=== PATIENT | male | born 1950 | race Caucasian/White ===

== ENCOUNTER 2023-07-14 07:40 | Emergency (ER) | payer MEDICARE ==
[2023-07-14] MEDS ORDERED: Ondansetron 4 MG/2 ML SDV IVPUSH ONE (07:58)
[2023-07-14] MEDS ORDERED: HYDROmorphone 0.5 MG/0.5 ML Syringe IVPUSH ONE ×2 (07:59→11:55)
[2023-07-14] MEDS ORDERED: Sodium Chloride 0.9% 1,000 ML IV SCH (08:00)
[2023-07-14 08:17] LABS: BASOPHILS PERCENT AUTO 0.2 % (0.1-1.3); EOSINOPHILS ABSOLUTE AUTO 0.18 K/uL (0.00-0.40); HEMATOCRIT 41.5 % (38.4-49.7); HEMOGLOBIN 13.7 g/dL (12.9-16.9); IMMATURE GRAN ABSOLUTE AUTO 0.06 K/uL (0.00-0.23); IMMATURE GRAN PERCENT AUTO 0.7 % (0.0-0.7); LYMPHOCYTES ABSOLUTE AUTO 1.01 K/uL (0.8-3.3); LYMPHOCYTES PERCENT AUTO 11.3 % (11.4-47.7); MEAN CORPUSCULAR HEMOGLOBIN 32.5 pg (31.6-35.5); MEAN CORPUSCULAR VOLUME 98.3 fL (81.4-99.0); MONOCYTES ABSOLUTE AUTO 0.49 K/uL (0.20-0.90); MONOCYTES PERCENT AUTO 5.5 % (3.3-12.6); NEUTROPHILS ABSOLUTE AUTO 7.16 K/uL (1.0-7.6); NEUTROPHILS PERCENT AUTO 80.3 % (40.0-78.1); PLATELET COUNT,PLT 261 K/uL (130-375); RED BLOOD CELL COUNT 4.22 M/uL (4.14-5.76); WHITE BLOOD CELL COUNT,WBC 8.9 K/uL (3.2-11.0)
[2023-07-14 08:19] LABS: BASOPHILS ABSOLUTE AUTO 0.02 K/uL (0.00-0.10)
[2023-07-14 08:41] LABS: A/G RATIO 0.7 (1.2-2.2); ALANINE AMINOTRANSFERASE,ALT 31 U/L (12-78); ALBUMIN 2.8 g/dL (3.4-5.0); ALKALINE PHOSPHATASE 107 U/L (46-116); ASPARTATE AMNIOTRANSFERASE,AST 34 U/L (15-37); BILIRUBIN TOTAL 2.1 mg/dL (0.2-1.0); BLOOD UREA NITROGEN,BUN 8 mg/dL (7-18); CALCIUM 8.6 mg/dL (8.5-10.1); CARBON DIOXIDE,CO2 27 mmol/L (21-32); CHLORIDE,CL 99 mmol/L (100-108); CREATININE 1.2 mg/dL (0.8-1.3); ESTIMATED GFR 64 mL/min (>60); GLUCOSE RANDOM 130 mg/dL (74-106); POTASSIUM,K 3.8 mmol/L (3.6-5.2); PROTEIN TOTAL,TP 6.8 g/dL (6.4-8.2); SODIUM,NA 136 mmol/L (140-148)
[2023-07-14 08:42] LABS: ANION GAP 13.8 mmol/L (5.0-14.0)
[2023-07-14 08:44] LABS: LACTIC ACID 1.6 mmol/L (0.4-2.0)
[2023-07-14] MEDS ORDERED: Sodium Chloride 0.9% 80 ML IV SCH (09:00)
[2023-07-14] MEDS ORDERED: Iopamidol 612 MG/ML 100 ML Bottle IV PRN (09:00)
[2023-07-14] MEDS ORDERED: Sodium Chloride 0.9% 10 ML Syringe FLUSH ONE (09:00)
[2023-07-14 09:40] LABS: APPEARANCE,URINE CLEAR (CLEAR); BILIRUBIN,URINE SMALL (NEGATIVE); COLOR,URINE ORANGE (YELLOW); GLUCOSE,URINE NEGATIVE (NEGATIVE); KETONES,URINE NEGATIVE (NEGATIVE); LEUKOCYTE ESTERASE,URINE NEGATIVE (NEGATIVE); NITRITE,URINE NEGATIVE (NEGATIVE); OCCULT BLOOD,URINE TRACE-LYSED (NEGATIVE); PROTEIN,URINE 100 mg/dL (NEGATIVE)
[2023-07-14 10:12] LABS: BACTERIA,URINE NOT SEEN; EPITHELIAL CELLS,URINE NOT SEEN; RBC,URINE NOT SEEN (0-5); WBC,URINE NOT SEEN (0-5)
[2023-07-14] MEDS ORDERED: Piperacillin/Tazobactam 4.5 GM in Sodium Chloride 0.9% 100 ML IV ONE ×2 (11:40→12:00)
[2023-07-14] MEDS ORDERED: Acetaminophen 325 MG Tab PO ONE (11:42)
[2023-07-14] MEDS ORDERED: Piperacillin/Tazobactam/Dext 2.25 GM in Premix Bag 1 BAG IV SCH (12:00)
== END 2023-07-14 13:20 ==
LOC: JP.ED 07:40
DX: R10.11 Right upper quadrant pain (principal); Z90.49 Acquired absence of other specified parts of digestive tract; I10 Essential (primary) hypertension; I48.91 Unspecified atrial fibrillation; Z79.899 Other long term (current) drug therapy; Z79.82 Long term (current) use of aspirin; Z88.8 Allergy status to other drugs, medicaments and biological substances
CPT/HCPCS: 36415; 74177; 74177-26; 80053; 81001; 82150; 83605; 83690; 85025; 87040; 87077; 87186; 96361; 96365; 96375; 96376; 99284; 99285-25; A9270-GY; J1170; J2405; J2543; J3490; J7030; Q9967

== ENCOUNTER 2023-08-31 10:02 | Emergency (ER) | payer MEDICARE | END 2023-08-31 10:57 | disposition home or self-care (01) | LOC: JP.ED 10:02 | DX: L50.9 Urticaria, unspecified (principal); I10 Essential (primary) hypertension; Z79.899 Other long term (current) drug therapy; Z88.6 Allergy status to analgesic agent | CPT/HCPCS: 99282 ==

== ENCOUNTER 2025-08-01 13:23 | Inpatient (IN) | payer MEDICARE ==
[2025-08-01] MEDS ORDERED: Naloxone 0.4 MG/ML SDV IVPUSH PRN (15:04)
[2025-08-01 15:27] LABS: BASOPHILS ABSOLUTE AUTO 0.04 K/uL (0.00-0.10); BASOPHILS PERCENT AUTO 0.4 % (0.1-1.3); EOSINOPHILS ABSOLUTE AUTO 0.33 K/uL (0.00-0.40); EOSINOPHILS PERCENT AUTO 3.5 % (0.0-5.4); IMMATURE GRAN ABSOLUTE AUTO 0.03 K/uL (0.00-0.23); IMMATURE GRAN PERCENT AUTO 0.3 % (0.0-0.7); LYMPHOCYTES ABSOLUTE AUTO 2.12 K/uL (0.8-3.3); LYMPHOCYTES PERCENT AUTO 22.3 % (11.4-47.7); MONOCYTES ABSOLUTE AUTO 0.78 K/uL (0.20-0.90); MONOCYTES PERCENT AUTO 8.2 % (3.3-12.6); NEUTROPHILS ABSOLUTE AUTO 6.22 K/uL (1.0-7.6); NEUTROPHILS PERCENT AUTO 65.3 % (40.0-78.1); PLATELET COUNT,PLT 223 K/uL (130-375); RED BLOOD CELL COUNT 4.20 M/uL (4.14-5.76); WHITE BLOOD CELL COUNT,WBC 9.5 K/uL (3.2-11.0)
[2025-08-01] MEDS: Ondansetron 4 MG/2 ML SDV IVPUSH ONE ×2 (15:39→18:37)
[2025-08-01 15:54] LABS: A/G RATIO 1.0 (1.2-2.2); ALANINE AMINOTRANSFERASE,ALT 27 U/L (12-78); ASPARTATE AMNIOTRANSFERASE,AST 47 U/L (15-37); BILIRUBIN TOTAL 1.8 mg/dL (0.2-1.0); BLOOD UREA NITROGEN,BUN 20 mg/dL (7-18); CARBON DIOXIDE,CO2 30 mmol/L (21-32); CHLORIDE,CL 97 mmol/L (100-108); CREATININE 1.2 mg/dL (0.8-1.3); EST CRCL DRUG DOSING (CG) 55.76 mL/min; ESTIMATED GFR 63 mL/min (>60); GLUCOSE RANDOM 113 mg/dL (74-106); POTASSIUM,K 3.7 mmol/L (3.6-5.2); PRO B-TYPE NATRIUR PEPT,BNPPRO 1660 pg/mL (5-125); PROTEIN TOTAL,TP 7.4 g/dL (6.4-8.2); SODIUM,NA 137 mmol/L (140-148)
[2025-08-01] MEDS: Sodium Chloride 0.9% 10 ML Syringe FLUSH PRN (16:25)
[2025-08-01] MEDS: Iopamidol 612 MG/ML 100 ML Bottle IV PRN (16:25)
[2025-08-01 17:25] LABS: APPEARANCE,URINE CLEAR (CLEAR); GLUCOSE,URINE NEGATIVE (NEGATIVE); OCCULT BLOOD,URINE TRACE-INTACT (NEGATIVE)
[2025-08-01 17:32] LABS: SQUAMOUS EPITHELIAL CELLS,UR RARE /HPF; UROTHELIAL CELLS,URINE NOT SEEN /HPF
[2025-08-01] MEDS: Furosemide 40 MG/4 ML VIAL IVPUSH ONE ×3 (20:50→22:54)
[2025-08-01] MEDS ORDERED: Ondansetron 4 MG Tab.DIS PO PRN (22:01)
[2025-08-01] MEDS ORDERED: Magnesium Hydroxide 400 MG/5 ML Susp 30 ML Cup PO PRN (22:01)
[2025-08-01] MEDS ORDERED: Sennosides/Docusate Sodium 50-8.6 MG Tab PO PRN (22:01)
[2025-08-01] MEDS ORDERED: Sodium Chloride 0.9% 10 ML Syringe FLUSH PRN (22:01)
[2025-08-01] MEDS ORDERED: Nystatin Topical Powder 15 GM Bottle TOP PRN (23:20)
[2025-08-01] MEDS: Morphine 30 MG Tab.ER PO ONE (23:49)
[2025-08-02 02:32] LABS: BASOPHILS ABSOLUTE AUTO 0.03 K/uL (0.00-0.10); BASOPHILS PERCENT AUTO 0.4 % (0.1-1.3); EOSINOPHILS ABSOLUTE AUTO 0.07 K/uL (0.00-0.40); EOSINOPHILS PERCENT AUTO 0.8 % (0.0-5.4); IMMATURE GRAN ABSOLUTE AUTO 0.01 K/uL (0.00-0.23); IMMATURE GRAN PERCENT AUTO 0.1 % (0.0-0.7); LYMPHOCYTES ABSOLUTE AUTO 1.00 K/uL (0.8-3.3); LYMPHOCYTES PERCENT AUTO 11.8 % (11.4-47.7); MONOCYTES ABSOLUTE AUTO 0.83 K/uL (0.20-0.90); MONOCYTES PERCENT AUTO 9.8 % (3.3-12.6); NEUTROPHILS ABSOLUTE AUTO 6.57 K/uL (1.0-7.6); NEUTROPHILS PERCENT AUTO 77.1 % (40.0-78.1); PLATELET COUNT,PLT 215 K/uL (130-375); RED BLOOD CELL COUNT 4.10 M/uL (4.14-5.76); WHITE BLOOD CELL COUNT,WBC 8.5 K/uL (3.2-11.0)
[2025-08-02 02:53] LABS: BLOOD UREA NITROGEN,BUN 24.0 mg/dL (7-18); CARBON DIOXIDE,CO2 27.0 mmol/L (21-32); CHLORIDE,CL 98.0 mmol/L (100-108); CREATININE 1.3 mg/dL (0.8-1.3); EST CRCL DRUG DOSING (CG) 49.85 mL/min; ESTIMATED GFR 58.0 mL/min (>60); GLUCOSE RANDOM 115.0 mg/dL (74-106); POTASSIUM,K 3.5 mmol/L (3.6-5.2); SODIUM,NA 139.0 mmol/L (140-148)
[2025-08-02] MEDS: Magnesium Sulfate 2 GM/50 mL 2 GM in Premix Bag 1 BAG IV ONE (03:12)
[2025-08-02] MEDS: Ondansetron 4 MG/2 ML SDV IV PRN (05:39)
[2025-08-02] MEDS ORDERED: MORPHINE 30 MG PO SCH (09:00)
[2025-08-02] MEDS: Potassium Chloride 20 MEQ Tab.ER PO ONE (09:58)
[2025-08-02] MEDS: Aspirin 325 MG Tab.EC PO SCH (09:59)
[2025-08-02] MEDS: Morphine 30 MG Tab.ER PO SCH (10:00)
[2025-08-02] MEDS: Nystatin Topical Powder 15 GM Bottle TOP PRN (14:14)
[2025-08-03 06:06] LABS: PLATELET COUNT,PLT 191.0 K/uL (130-375); RED BLOOD CELL COUNT 3.6 M/uL (4.14-5.76); WHITE BLOOD CELL COUNT,WBC 4.1 K/uL (3.2-11.0)
[2025-08-03 06:21] LABS: A/G RATIO 0.9 (1.2-2.2); ALANINE AMINOTRANSFERASE,ALT 25 U/L (12-78); ASPARTATE AMNIOTRANSFERASE,AST 47 U/L (15-37); BILIRUBIN TOTAL 1.0 mg/dL (0.2-1.0); BLOOD UREA NITROGEN,BUN 38 mg/dL (7-18); CARBON DIOXIDE,CO2 26 mmol/L (21-32); CHLORIDE,CL 99 mmol/L (100-108); CREATININE 1.6 mg/dL (0.8-1.3); EST CRCL DRUG DOSING (CG) 40.51 mL/min; ESTIMATED GFR 45 mL/min (>60); GLUCOSE RANDOM 116 mg/dL (74-106); POTASSIUM,K 3.5 mmol/L (3.6-5.2); PROTEIN TOTAL,TP 5.9 g/dL (6.4-8.2); SODIUM,NA 137 mmol/L (140-148)
[2025-08-03] MEDS ORDERED: Prochlorperazine 10 MG/2 ML SDV IM PRN (10:27)
[2025-08-03] MEDS ORDERED: Prochlorperazine 10 MG/2 ML SDV IV PRN (10:31)
[2025-08-03] MEDS: Prochlorperazine 10 MG/2 ML SDV IV PRN (10:35)
[2025-08-03] MEDS: Potassium Chloride 20 MEQ Tab.ER PO ONE (11:18)
[2025-08-04 05:59] LABS: PLATELET COUNT,PLT 209.0 K/uL (130-375); RED BLOOD CELL COUNT 3.71 M/uL (4.14-5.76); WHITE BLOOD CELL COUNT,WBC 6.3 K/uL (3.2-11.0)
[2025-08-04 06:14] LABS: BLOOD UREA NITROGEN,BUN 29.0 mg/dL (7-18); CARBON DIOXIDE,CO2 27.0 mmol/L (21-32); CHLORIDE,CL 103.0 mmol/L (100-108); CREATININE 1.0 mg/dL (0.8-1.3); EST CRCL DRUG DOSING (CG) 64.81 mL/min; ESTIMATED GFR 79.0 mL/min (>60); GLUCOSE RANDOM 116.0 mg/dL (74-106); POTASSIUM,K 3.7 mmol/L (3.6-5.2); SODIUM,NA 139.0 mmol/L (140-148)
[2025-08-07 05:48] LABS: PLATELET COUNT,PLT 209.0 K/uL (130-375); RED BLOOD CELL COUNT 3.43 M/uL (4.14-5.76); WHITE BLOOD CELL COUNT,WBC 9.5 K/uL (3.2-11.0)
[2025-08-07 06:05] LABS: BLOOD UREA NITROGEN,BUN 19.0 mg/dL (7-18); CARBON DIOXIDE,CO2 27.0 mmol/L (21-32); CHLORIDE,CL 107.0 mmol/L (100-108); CREATININE 0.9 mg/dL (0.8-1.3); EST CRCL DRUG DOSING (CG) 72.01 mL/min; ESTIMATED GFR 90.0 mL/min (>60); GLUCOSE RANDOM 105.0 mg/dL (74-106); POTASSIUM,K 3.6 mmol/L (3.6-5.2); SODIUM,NA 142.0 mmol/L (140-148)
[2025-08-09] MEDS ORDERED: methylPREDNISolone Acetate 80 MG/ML SDV ONE (08:03)
== END 2025-08-10 10:56 | DRG 552 ==
LOC: JP.ED 13:23 → JP.MS 21:57
PROVIDERS: ADMIT Nurse Practitioner; ATTEND Hospitalist
DX: R60.0 Localized edema (principal); M48.061 Spinal stenosis, lumbar region without neurogenic claudication; M10.9 Gout, unspecified; R53.1 Weakness; I48.91 Unspecified atrial fibrillation; I10 Essential (primary) hypertension; F10.10 Alcohol abuse, uncomplicated; Z88.8 Allergy status to other drugs, medicaments and biological substances; Z79.82 Long term (current) use of aspirin; Z79.899 Other long term (current) drug therapy; Z90.49 Acquired absence of other specified parts of digestive tract; Z98.890 Other specified postprocedural states
CPT/HCPCS: 36415; 71045 ×2; 74177 ×2; 80053; 81001; 83880; 85025; 86140; 96374; 96375; 96376; 99284; 99285; J1938; J2270 ×2; J2405 ×2; Q9967; 72148; 72148-26; 73560-26-LT; 73560-LT; 80048; 82140; 83735; 84484; 84550; 85027; 87493; 93005; 93010; 93306; 97161-GP; 97165-GO; 97530-GP; 99223; 99232; 99238; A9270-GY; J0665; J0696; J0780; J1010; J1650; J2470; J3475; J7030; J7512; J8540